=== PATIENT | female | born 1955 | race Caucasian/White ===

== ENCOUNTER 2017-08-30 06:25 | Emergency (ER) | payer OTHER ==
[~2017-08-30] VITALS: Ht 154.9 cm; Wt 73.4 kg
[2017-08-30 06:29] VITALS: Ht 154.9 cm; Wt 73.4 kg
[2017-08-30] MEDS ORDERED: ONDANSETRON 4 MG INJ IV STA (06:53)
[2017-08-30] MEDS ORDERED: MECLIZINE 12.5 MG TAB PO ONE (07:00)
--- NOTE | 2017-08-30 07:01 | ERD ---
ER Documentation Chief Complaint Chief Complaint vomiting and dizziness x1 this AM HPI This is a 61-year-old female who presents the emergency department today with her son complaining of vomiting and dizziness that started this morning. Patient denies any headache, blurred vision, chest pain or shortness of breath. Denies any sick contacts. Denies any dysuria, fevers or chills. ROS All systems reviewed and are negative except as per history of present illness. Medications Home Meds Active Scripts Ondansetron Hcl* (Zofran*) 4 Mg Tablet, 4 MG PO Q6H for NAUSEA AND/OR VOMITING, #30 TAB Prov:ARTEM TRACY PA-C 08/30/17 Meclizine Hcl* (Antivert*) 12.5 Mg Tab, 12.5 MG PO Q6H Y for DIZZINESS, #20 TAB Prov:ARTEM TRACY PA-C 08/30/17 Allergies Allergies: Coded Allergies: No Known Allergy (Unverified , 08/30/17) PMhx/Soc Medical and Surgical Hx: pt denies Surgical Hx History of Surgery: No Anesthesia Reaction: No Hx Neurological Disorder: No Hx Respiratory Disorders: No Hx Cardiac Disorders: Yes (HYPERLIPIDEMIA) Hx Psychiatric Problems: No Hx Miscellaneous Medical Probl: No Hx Alcohol Use: No Hx Substance Use: No Hx Tobacco Use: No Smoking Status: Never smoker Physical Exam Vitals Vital Signs Date Time Temp Pulse Resp B/P Pulse Ox O2 Delivery O2 Flow Rate FiO2 08/30/17 06:29 98.7 73 20 129/81 99 Physical Exam Const: NAD Head: Atraumatic Eyes: Normal Conjunctiva. PERRLA. EOM intact. ENT: Normal External Ears, Nose and Mouth. Neck: Full range of motion..~ No meningismus. Resp: Clear to auscultation bilaterally Cardio: Regular rate and rhythm, no murmurs Abd: Soft, non tender, non distended. Normal bowel sounds Skin: No petechiae or rashes Back: No midline or flank tenderness Ext: No cyanosis, or edema Neur: Awake and alert. Cranial nerves II through XII intact. No gait ataxia. Psych: Normal Mood and Affect Result Diagram: 08/30/17 0700 08/30/17 0700 Results 24 hrs Laboratory Tests Test 08/30/17 07:00 White Blood Count 7.610^3/ul Red Blood Count 5.0110^6/ul Hemoglobin 14.2g/dl Hematocrit 42.2% Mean Corpuscular Volume 84.2fl Mean Corpuscular Hemoglobin 28.3pg Mean Corpuscular Hemoglobin Concent 33.6g/dl Red Cell Distribution Width 13.5% Platelet Count 06091^3/UL Mean Platelet Volume 9.5fl Neutrophils % 70.1% Lymphocytes % 22.0% Monocytes % 6.0% Eosinophils % 1.3% Basophils % 0.3% Nucleated Red Blood Cells % 0.0/100WBC Neutrophils # 5.410^3/ul Lymphocytes # 1.710^3/ul Monocytes # 0.510^3/ul Eosinophils # 0.110^3/ul Basophils # 0.010^3/ul Nucleated Red Blood Cells # 0.010^3/ul Urine Color YELLOW Urine Clarity CLEAR Urine pH 5.0 Urine Specific Thornton 1.020 Urine Ketones NEGATIVEmg/dL Urine Nitrite NEGATIVEmg/dL Urine Bilirubin NEGATIVEmg/dL Urine Urobilinogen NEGATIVEmg/dL Urine Leukocyte Esterase NEGATIVELeu/ul Urine Microscopic RBC 10/HPF Urine Microscopic WBC 1/HPF Urine Squamous Epithelial Cells FEW/HPF Urine Mucus FEW/HPF Urine Hemoglobin 2+mg/dL Urine Glucose NEGATIVEmg/dL Urine Total Protein 1+mg/dl Sodium Level 144mmol/L Potassium Level 4.0mmol/L Chloride Level 109mmol/L Carbon Dioxide Level 23mmol/L Anion Gap 16 Blood Urea Nitrogen 15mg/dl Creatinine 0.74mg/dl Glucose Level 105mg/dl Calcium Level 9.1mg/dl Total Bilirubin 0.5mg/dl Direct Bilirubin 0.00mg/dl Indirect Bilirubin 0.5mg/dl Aspartate Amino Transf (AST/SGOT) 29IU/L Alanine Aminotransferase (ALT/SGPT) 23IU/L Alkaline Phosphatase 59IU/L Total Protein 7.6g/dl Albumin 3.9g/dl Globulin 3.70g/dl Albumin/Globulin Ratio 1.05 Current Medications Medications (Trade) Dose Ordered Sig/Brennen Route PRN Reason Start Time Stop Time Status Last Admin Dose Admin Ondansetron HCl (Zofran Inj) 4 mg ONCE STAT IV 08/30/17 06:53 08/30/17 06:56 DC 08/30/17 07:08 Meclizine HCl (Antivert) 25 mg ONCE ONCE PO 08/30/17 07:00 08/30/17 07:01 DC 08/30/17 07:08 DIAGNOSTIC IMAGING REPORT Patient: SHARATH LUNA : 1955 Age: 61 Sex: F [id number] DOS: 08/30/17 0000 Ordering MD: ARTEM TRACY PA-C Location: [facility] Room/Bed: PROCEDURE: CT Brain without contrast. CLINICAL INDICATION: Dizziness TECHNIQUE: A CT of the brain was performed on a GE 64-slice CT scanner utilizing axial imaging from the skull base through the vertex without IV contrast. Multiplanar reformatted images were made. Images were reviewed on a PACS workstation. The CTDIvol is 45.01 mGy and the DLP is 720.23 mGycm. One or more of the following dose reduction techniques were used: automated exposure control, adjustment of the mA and/or kV according to patient size, or use of iterative reconstruction technique. COMPARISON: None FINDINGS: There is no intracranial hemorrhage, mass effect, or midline shift. No extra- axial fluid collection is seen. The ventricles and sulci are normal in size and configuration. The density of the brain is normal, and the oliveira white matter differentiation appears well-preserved. The brainstem and posterior fossa are normal. The visualized paranasal sinuses and osseous structures are grossly unremarkable. IMPRESSION: 1. No evidence of acute intracranial pathology. RPTAT: HCNS Physician Jimbo Date Time Electronically viewed and signed by Physician Jimbo on 08/30/2017 07: 35 CS/ CC: ARTEM TRACY PA-C Procedures/MDM This is a 61-year-old female who presents the emergency department today for vomiting and dizziness that started this morning. Upon review of patient's medical records this is the patient's first visit to the emergency department. Given patient's age and primary complaints I did obtain laboratory workup as well as imaging. Laboratory workup shows no elevated white blood cell count. She is not anemic. Platelets are within normal limits. Electrolytes are within normal limits. Glucose is within normal limits. Liver enzymes are within normal limits. UA for infection. There is 10+ microscopic white blood cells. EKG interpreted by Dr. Mack. Rate [address] elevation. No QT prolongation. Normal sinus rhythm. Low suspicion for acute NC, PE, pericarditis. Head CT noncontrast shows no evidence of acute intracranial pathology. There is no intracranial hemorrhage, mass-effect or midline shift. Low suspicion for acute hemorrhage, mass, abscess, meningitis. Patient was given meclizine and Zofran here in the emergency department and she reported that symptoms improved. Symptoms at this time is consistent with dizziness of uncertain etiology likely vertigo and vomiting and hematuria. Low suspicion for cardiac cause of dizziness, anemia, sepsis or severe acute bacterial infection.. Given a prescription for meclizine and Zofran. She is instructed to follow-up with her primary care doctor for referral to urology specialist about the hematuria. At this time the patient is stable for discharge and outpatient management. Patient should follow up with their PCP in the next 1-2 days. They may return to the emergency department sooner for any persistent or worsening of symptoms. Patient understood and agreed with the plan. Dr. Mack has seen and evaluated the patient and is in agreement with the plan Departure Diagnosis: Primary Impression: Dizziness Additional Impression: Vomiting Vomiting type: unspecified Vomiting Intractability: non-intractable Nausea presence: unspecified Qualified Code: R11.10 - Non-intractable vomiting, presence of nausea not specified, unspecified vomiting type Condition: ARTEM Kent PA-C Aug 30, 2017 07:01
--- NOTE | 2017-08-30 07:35 | RADRPT ---
PROCEDURE: CT Brain without contrast. CLINICAL INDICATION: Dizziness TECHNIQUE: A CT of the brain was performed on a GE 64-slice CT scanner utilizing axial imaging fr om the skull base through the vertex without IV contrast. Multiplanar reformatted images were made. Images were reviewed on a PACS workstation. The CTDIvol is 45.01 mGy and the DLP is 720.23 mGycm. One or more of the following dose reduction techniques were used: automated exposure control, adju stment of the mA and/or kV according to patient size, or use of iterative reconstruction technique. COMPARISON: None FINDINGS: There is no intracranial hemorrhage, mass effect, or midline shift. No extra-axial fluid collection is seen. The ventricles and sulci are normal in size and configuration. The density of the brain is normal, and the oliveira white matter differentiation appears well-preserved. The brainstem and posteri or fossa are normal. The visualized paranasal sinuses and osseous structures are grossly unremarkabl e. IMPRESSION: 1. No evidence of acute intracranial pathology. RPTAT: HCNS Physician Jimbo Date Time Electronically viewed and signed by Physician Jimbo on 08/30/2017 07:35 /
[2017-08-30 07:49] LABS: BASOPHILS % 0.3 % (0.0-2.0); EOSINOPHILS # 0.1 10^3/ul (0.0-0.5); EOSINOPHILS % 1.3 % (0.0-7.0); HEMATOCRIT 42.2 % (37.0-47.0); HEMOGLOBIN 14.2 g/dl (12.0-16.0); LYMPHOCYTES # 1.7 10^3/ul (0.8-2.9); MEAN CORPUSCULAR HEMOGLOBIN 28.3 pg (29.0-33.0); MEAN CORPUSCULAR HGB CONC 33.6 g/dl (32.0-37.0); MEAN CORPUSCULAR VOLUME 84.2 fl (82.0-101.0); MEAN PLATELET VOLUME 9.5 fl (7.4-10.4); MONOCYTE # 0.5 10^3/ul (0.3-0.9); NEUTROPHIL # 5.4 10^3/ul (1.6-7.5); NEUTROPHILS % 70.1 % (39.0-77.0); PLATELET COUNT 236 10^3/UL (140-415); RED BLOOD COUNT 5.01 10^6/ul (4.20-5.40); RED CELL DISTRIBUTION WIDTH 13.5 % (11.5-14.5); WHITE BLOOD COUNT 7.6 10^3/ul (4.8-10.8)
[2017-08-30 07:51] LABS: ADD UMIC YES; UR ASCORBIC ACID NEGATIVE (NEGATIVE); UR BILIRUBIN (Dip) NEGATIVE (NEGATIVE); UR BLOOD (Dip) 2+ mg/dL (NEGATIVE); UR CLARITY CLEAR (CLEAR); UR COLOR YELLOW (YELLOW); UR GLUCOSE (Dip) NEGATIVE (NEGATIVE); UR KETONES (Dip) NEGATIVE (NEGATIVE); UR LEUKOCYTE ESTERASE (Dip) NEGATIVE Leu/ul (NEGATIVE); UR MUCUS FEW /HPF (NONE SEEN); UR NITRITE (Dip) NEGATIVE (NEGATIVE); UR RBC 10 /HPF (0-5); UR SQUAMOUS EPITHELIAL CELL FEW /HPF (FEW); UR TOTAL PROTEIN (Dip) 1+ mg/dl (NEGATIVE); UR UROBILINOGEN (Dip) NEGATIVE (NEGATIVE)
[2017-08-30 08:07] LABS: ALBUMIN 3.9 g/dl (3.3-4.9); ALBUMIN/GLOBULIN RATIO 1.05; BILIRUBIN,INDIRECT 0.5 mg/dl (0-1.1); BILIRUBIN,TOTAL 0.5 mg/dl (0.2-1.3); CALCIUM 9.1 mg/dl (8.4-10.2); CREATININE 0.74 mg/dl (0.44-1.00); TOTAL PROTEIN 7.6 g/dl (6.1-8.1)
[2017-08-30] MEDS ORDERED: MECL12.574 PO (09:02)
[2017-08-30] MEDS ORDERED: ONDA4TAB8 PO (09:02)
[2017-08-30 09:19] VITALS: BP 128/81; PULSE 78; RESP 20
== END 2017-08-30 09:20 | disposition home or self-care (01) ==
LOC: FTE 06:25
DX: R42 Dizziness and giddiness (principal); R11.10 Vomiting, unspecified
CPT/HCPCS: 36415; 70450; 80053; 81001; 85025; 93005; 96374; J2405; Z7502; Z7610